=== PATIENT | female | born 1935 | race Caucasian/White ===

== ENCOUNTER → 2022-10-29 12:30 | Outpatient (REF) | payer OTHER, SELFPAY | LOC: WOUND 12:30 | PROVIDERS: ATTENDING PHYSICIAN Surgery; REFERRING PHYSICIAN Family Medicine | DX: L97.512 Non-pressure chronic ulcer of other part of right foot with fat layer exposed (principal); I73.9 Peripheral vascular disease, unspecified; L97.522 Non-pressure chronic ulcer of other part of left foot with fat layer exposed | CPT/HCPCS: 11042 ==

== ENCOUNTER → 2023-05-23 00:03 | Outpatient (REF) | payer OTHER, SELFPAY ==
[2023-05-23 00:24] LABS: % Basophils 0.2 % (0-2); % Immature Granulocytes 0.4 % (0-0.5); % Lymphocytes 21.2 % (20.5-51.1); % Monocytes 17.8 % (1.7-9.3); % Neutrophils 60.4 % (42.2-75.2); Absolute Lymphocytes 1.2 10^3/uL (1.2-3.4); Absolute Neutrophils 3.4 10^3/uL (1.4-6.5); Mean Corp Hgb Conc. 33.3 g/dL (33.0-37.0); Mean Corpuscular Hgb 30.3 pg (27.0-31.0); Mean Corpuscular Volume 90.9 fL (81.0-99.0); Nucleated Red Blood Cells % 0 %; Platelet Count 164 10^3/uL (130-400); Red Blood Cell Count 3.63 10^6/uL (4.20-5.40); Red Cell Dist. Width 15.9 % (11.5-14.5); White Blood Cell Count 5.7 10^3/uL (4.8-10.8)
== END ==
LOC: OLAB 00:03
PROVIDERS: ATTENDING PHYSICIAN Student in an Organized Health Care Education/Training Program
DX: R05.9 Cough, unspecified (principal)
CPT/HCPCS: 85025

== ENCOUNTER → 2023-08-12 10:07 | Outpatient (REF) | payer MEDICARE, OTHER, SELFPAY ==
[2023-08-12 11:58] LABS: Free T4 0.91 ng/dl (0.78-2.19)
[2023-08-15 17:29] LABS: Total T3 (Sendout) 88 ng/dL (80-200)
== END ==
LOC: OLABN 10:07
PROVIDERS: ATTENDING PHYSICIAN Student in an Organized Health Care Education/Training Program
DX: E03.9 Hypothyroidism, unspecified (principal)
CPT/HCPCS: 36415; 84439; 84443; 84480

== ENCOUNTER → 2023-08-16 12:04 | Outpatient (REF) | payer MEDICARE, OTHER, SELFPAY ==
[2023-08-16 13:08] LABS: Creatine Phosphokinase 54 U/L (30-135); HDL Cholesterol 37 mg/dl; LDL Cholesterol, Calculated 59 mg/dl; Total Cholesterol 118 mg/dl (50-199); Triglyceride 112 mg/dl (10-149); Very Low Density Lipoprotein 22 mg/dl (0-30)
[2023-08-16 13:19] LABS: Free T3 2.66 pg/ml (2.77-5.27); Free T4 1.06 ng/dl (0.78-2.19)
== END ==
LOC: OLABN 12:04
PROVIDERS: ATTENDING PHYSICIAN Student in an Organized Health Care Education/Training Program
DX: E03.9 Hypothyroidism, unspecified (principal); E78.89 Other lipoprotein metabolism disorders
CPT/HCPCS: 36415; 80061; 82550; 84439; 84443; 84481

== ENCOUNTER → 2023-09-27 11:26 | Outpatient (REF) | payer MEDICARE, OTHER, SELFPAY | LOC: HWRAD 11:26 | PROVIDERS: ATTENDING PHYSICIAN Student in an Organized Health Care Education/Training Program | DX: R94.6 Abnormal results of thyroid function studies (principal); E03.9 Hypothyroidism, unspecified | CPT/HCPCS: 76536 ==

== ENCOUNTER → 2023-10-05 11:58 | Outpatient (REF) | payer MEDICARE, OTHER, SELFPAY ==
[2023-10-05 13:18] LABS: Free T4 1.45 ng/dl (0.78-2.19)
[2023-10-05 13:31] LABS: TSH 7.38 uIU/ml (0.47-4.68)
== END ==
LOC: OLABN 11:58
PROVIDERS: ATTENDING PHYSICIAN Student in an Organized Health Care Education/Training Program
DX: E03.9 Hypothyroidism, unspecified (principal)
CPT/HCPCS: 36415; 84439; 84443

== ENCOUNTER → 2023-11-15 11:32 | Outpatient (REF) | payer MEDICARE, OTHER, SELFPAY ==
[2023-11-15 14:17] LABS: Free T4 1.72 ng/dl (0.78-2.19)
[2023-11-15 14:31] LABS: TSH 0.98 uIU/ml (0.47-4.68)
== END ==
LOC: OLABN 11:32
PROVIDERS: ATTENDING PHYSICIAN Student in an Organized Health Care Education/Training Program
DX: E03.9 Hypothyroidism, unspecified (principal)
CPT/HCPCS: 36415; 84439; 84443

== ENCOUNTER → 2024-05-07 11:18 | Outpatient (REF) | payer MEDICARE, OTHER, SELFPAY ==
[2024-05-07 11:57] LABS: Urine Albumin Trace (Neg - Trace); Urine Bilirubin Negative (Negative); Urine Character Clear (Clear); Urine Color Yellow; Urine Glucose Negative (Negative); Urine Ketone Negative (Negative); Urine Leukocyte 2+ (Negative); Urine Nitrite Negative (Negative); Urine Occult Blood Negative (Negative); Urine Urobilinogen Negative (Neg - 1+); Urine pH 6.5 (5.0-9.0)
[2024-05-07 12:15] LABS: Urine Red Blood Cell None Seen /HPF (0-2); Urine Squamous Cell 0-2 /LPF (Few)
[2024-05-07 12:16] LABS: Urine Bacteria Many (Negative); Urine White Cell 30-40 /HPF (0-5)
== END ==
LOC: OLABN 11:18
PROVIDERS: ATTENDING PHYSICIAN Student in an Organized Health Care Education/Training Program
DX: R35.0 Frequency of micturition (principal)
CPT/HCPCS: 81003; 81015; 87077; 87086; 87088; 87186

== ENCOUNTER 2024-07-19 19:56 | Emergency (ER) | payer MEDICARE, OTHER, SELFPAY ==
[2024-07-19 20:00] VITALS: BP 140/101; BMI 26.3
[2024-07-19 20:18] LABS: % Basophils 0.6 % (0-2); % Eosinophils 1.7 % (0-6); % Immature Granulocytes 0.2 % (0-0.5); % Lymphocytes 27.8 % (20.5-51.1); % Monocytes 8.8 % (1.7-9.3); % Neutrophils 60.9 % (42.2-75.2); Absolute Basophils 0.1 10^3/uL (0-0.2); Absolute Eosinophils 0.1 10^3/uL (0-0.7); Absolute Lymphocytes 2.3 10^3/uL (1.2-3.4); Absolute Monocytes 0.7 10^3/uL (0.1-0.6); Absolute Neutrophils 4.9 10^3/uL (1.4-6.5); Hematocrit 38.8 % (37.0-47.0); Hemoglobin 12.2 g/dL (12.0-16.0); Mean Corp Hgb Conc. 31.4 g/dL (33.0-37.0); Mean Corpuscular Hgb 29.3 pg (27.0-31.0); Mean Platelet Volume 9.9 fL (7.4-10.4); Nucleated Red Blood Cells % 0 %; Platelet Count 175 10^3/uL (130-400); Red Blood Cell Count 4.17 10^6/uL (4.20-5.40); Red Cell Dist. Width 14.9 % (11.5-14.5); White Blood Cell Count 8.1 10^3/uL (4.8-10.8)
--- NOTE | 2024-07-19 20:30 | ED.GENMED ---
History of Present Illness
General
Chief Complaint: Chest Pain
Source: [facility] and [facility] records
Exam Limitations: dementia
Time Seen by Provider: 07/19/24 20:13
Nursing documentation reviewed up to this point in time: agreed with
History of Present Illness
History of Present Illness:
89-year-old female history of pacemaker dementia lives at a [facility] presents with chest pain headache apparently her demand pacemaker was working, I evaluated the patient she was disoriented to place and time she knew her name told me she is
retired nurse from [employer], denies chest pain denies headache denies shortness of breath states she does not know why she is here
Past History
Past History
ED Past Medical History: Arrthythmia (paroxysmal atrial tachycardia), GERD, HTN, Hypercholesterolemia, Hypothyroidism, Psychiatric (Velasquez. depression), Other (restless leg syndrome; GI bleed in March 2015), Other (cataract extraction bilaterally)
and Other (chronic back pain; question of polymyalgia)
ED Past Surgical History: Cardiac (Pacemaker), Cholecystectomy, Gynecological (hysterectomy), Orthopedic (hip replacements B/L) and Other (sinus surgery; carotid artery stenting bilaterally)
Social History
Tobacco: Former smoker
Alcohol: None
Drug: None
Personal:
Living: with family
Employment: Retired
Family History
Family History: Other (Father and Brother had kidney disease)
Review of Systems
Review of Systems
Unable to obtain full review of systems at this time due to: dementia
All Other Systems: Not applicable
Phy Exam
Physical Exam
Physical Exam:
Physical Exam
General: Elderly demented female in no acute distress
Neck: No jaundice
Heart: s1/s2 regular rate and rhythm, no murmur. equal radial pulses.
Lungs: Bibasilar crackles
Abdomen: Nontender
Neuro: Oriented x 1 clear speech distant memory intact
Skin: no rash
Psychiatric: cooperative
Extremities: 1+ edema no calf pain
Scores
Heart Score for Chest Pain Patients
STEMI patient?: No
History: Slightly or Non-Suspicious
ECG: Nonspecific Repolarization
Age: >/= 65 years
Risk Factors: >/= 3 Risk Factors or History of CAD
Troponin: </= Normal Limit
Heart Score for Chest Pain Patients: 5
Heart Score Risk: 20.3% MACE over next 6 weeks
Course
Orders/Labs/Results
Orders:
Orders
07/19/24 19:59
Electrocardiogram (*1) Urgent
Reason for Study: Chest Pain
EKG- Treatment ONCE
07/19/24 20:06
Complete Blood Count/With Diff Urgent
Comprehensive Metabolic Panel Urgent
NT-proBNP Urgent
Comment: ADD ON
Troponin I Urgent
07/19/24 20:29
Add On- LAB Urgent
Tests Added?: pbnp
07/19/24 20:30
CR Chest - 2 Views Urgent
Comment:
Reason For Exam: cp
07/19/24 21:25
Furosemide [Lasix] 20 mg IV NOW STA
Abnormal Lab Results
07/19/24
20:06
RBC 4.17 L 10^6/uL
(4.20-5.40)
MCHC 31.4 L g/dL
(33.0-37.0)
RDW 14.9 H %
(11.5-14.5)
Absolute Monos (auto) 0.7 H 10^3/uL
(0.1-0.6)
BUN 34 H mg/dl
(7-17)
Creatinine 1.2 H mg/dL
(0.6-1.0)
Glucose 120 H mg/dl
(70-99)
07/19/24 20:06
07/19/24 20:06
Vital Signs
Initial and Last Documented VS:
Initial Vital Signs
Pulse Resp BP Pulse Ox
90 21 140/101 95
07/19/24 20:00 07/19/24 20:00 07/19/24 20:00 07/19/24 20:00
Last Documented Vital Signs
Pulse Resp BP Pulse Ox
90 21 140/101 95
07/19/24 20:00 07/19/24 20:00 07/19/24 20:00 07/19/24 20:00
MDM/Problems Addressed
Differential Diagnosis Includes:
ACS noncardiac chest pain heart failure pneumonia dementia conceivably PE
MDM/Problems Addressed:
Chest pain headache
Chronic conditions affecting care: Arrhythmia and Neurological disorder
Acute Exacerbation and/or Progression of Chronic Illness: Arrhythmia and Neurological disorder
*Radiology
Radiology exam reviewed: preliminary read by ED provider
*Pulse Oximetry
Patient hypoxic: no
*EKG
Interpreted by ED Provider?: Yes
Interpretation: abnormal
Comparison EKG: no comparison EKG present
Heart Rate: 78
Rate: normal
Ischemia: non-specific ST changes
*Double Cut Off Saw Operator Interpretation
Rate: normal
Interpretation: normal
Heart Rate: 78
Rhythm: ventricular paced
*Critical Care Note
Total Time (30-74mins, 75-104mins- exclusive of procedures): Not Applicable
Update Note
Update Note:
Update patient no acute distress apparently has advanced dementia check some screening labs, with an eye towards sending her back to her facility if no acute issues are found
9 PM labs noted chest x-ray noted proBNP noted troponin undetectable looks like she has a large heart about his AP view, will await formal read from radiology consideration for some diuretic, prior echo noted
Chest x-ray report noted will order Lasix, does not appear to have a serious reaction with sulfa
ED Attending Note
-
Portions of this chart may have been created with voice recognition software.� Occasional wrong word or��sound alike� substitutions may have occurred due to the inherent limitations of voice recognition software.
Discharge Plan
Departure
Patient Disposition: Home (Routine Discharge)
Date of Disposition: 07/19/24
Time of Disposition: 21:26
Patient with high blood pressure during this ER visit?: No
Condition: Good
Discharge Problem:
CHF (congestive heart failure)
Instructions: Heart failure in adults - Discharge instructions, Heart failure - ED discharge instructions, *PCP/Other Senior [address] Engineer Heart Failure Instructions
Prescriptions:
New
furosemide [Lasix] 20 mg tablet
20 mg PO DAILY Qty: 20 0RF
No Action
clopidogrel 75 MG tablet
75 mg PO DAILY Qty: 30 0RF
citalopram 20 MG tablet
40 mg PO DAILY
lorazepam 1 MG tablet
1 mg PO HSPRN PRN (Reason: sleep)
Patient Comments:
07/05/21 filled 06/24/21 #30 for 30 days
atenolol 50 MG tablet
50 mg PO DAILY
cholecalciferol (vitamin D3) 1,000 UNITS tablet
2,000 units PO DAILY
biotin 5,000 MCG tablet,disintegrating
5,000 mcg PO DAILY
aspirin 81 MG tablet,delayed release (DR/EC)
81 mg PO DAILY
Align (B.infantis) 4 MG capsule
4 mg PO DAILY
levothyroxine 112 MCG tablet
112 mcg PO DAILY AT 0700 30 Days Qty: 30 0RF
acetaminophen [Tylenol] 325 mg Capsule
325 mg PO DAILYPRN PRN (Reason: mild pain)
atorvastatin 40 MG tablet
40 mg PO QPM
cholestyramine-aspartame [Cholestyramine Light] 4 gram powder in packet
1 grams PO BID
Referrals:
Jose Wang DO [Family Provider] - Next open appointment
Activity Restrictions/Additional Instructions:
Start Lasix 20 mg a day
Repeat blood work in 4 to 5 days
Interventions
Interventions:
*Risk Screen - Suicide Last Done: 07/19/24 20:03
*General Assessment Last Done: 07/19/24 20:03
*Neglect/Abuse Screening Last Done: 07/19/24 20:03
*ED- Fall Risk Assessment Last Done: 07/19/24 20:03
*ED COVID-19 Vaccine History Last Done: 07/19/24 20:03
Discharge Date and Time
Print Language: GREENLANDIC
[2024-07-19 20:34] LABS: ALT (SGPT) 19 U/L (0-35); AST (SGOT) 29 U/L (14-36); Albumin 4.3 g/dl (3.5-5.0); Alkaline Phosphatase 73 U/L (38-126); Blood Urea Nitrogen 34 mg/dl (7-17); Carbon Dioxide 24 mmol/L (22-30); Chloride 105 mmol/L (98-107); Estimated Creatinine Clearance 31 ml/min; Glucose 120 mg/dl (70-99); Potassium 4.9 mmol/L (3.5-5.1); Sodium 139 mmol/L (135-145); Total Bilirubin 0.6 mg/dl (0.2-1.3); Total Protein 7.7 g/dl (6.3-8.2); eGFR 43.27
[2024-07-19 20:43] LABS: Troponin I < 0.012 ng/ml
[2024-07-19 20:51] LABS: NT-proBNP 1970 pg/ml
[2024-07-19] MEDS: LASIX 20 MG IV (21:41)
== END 2024-07-19 22:10 | disposition home or self-care (01) ==
LOC: EMR 19:56
PROVIDERS: EMERGENCY PHYSICIAN Emergency Medicine; FAMILY PHYSICIAN Student in an Organized Health Care Education/Training Program
DX: I50.9 Heart failure, unspecified (principal); I11.0 Hypertensive heart disease with heart failure; F03.93 Unspecified dementia, unspecified severity, with mood disturbance; F32.A Depression, unspecified; I47.19 Other supraventricular tachycardia; K21.9 Gastro-esophageal reflux disease without esophagitis; G25.81 Restless legs syndrome; E78.00 Pure hypercholesterolemia, unspecified; E03.9 Hypothyroidism, unspecified; I25.10 Atherosclerotic heart disease of native coronary artery without angina pectoris; Z87.891 Personal history of nicotine dependence; Z90.49 Acquired absence of other specified parts of digestive tract; Z90.710 Acquired absence of both cervix and uterus; Z95.0 Presence of cardiac pacemaker
CPT/HCPCS: 99283; 96374; 71046; 80053; 83880; 84484; 85025; 93005; 96372; 99284

== ENCOUNTER → 2024-07-24 09:44 | Outpatient (REF) | payer MEDICARE, OTHER, SELFPAY ==
[2024-07-24 11:15] LABS: % Basophils 0.5 % (0-2); % Eosinophils 1.9 % (0-6); % Immature Granulocytes 0.3 % (0-0.5); % Lymphocytes 27.7 % (20.5-51.1); % Monocytes 9.3 % (1.7-9.3); % Neutrophils 60.3 % (42.2-75.2); Absolute Eosinophils 0.1 10^3/uL (0-0.7); Absolute Lymphocytes 2.1 10^3/uL (1.2-3.4); Absolute Monocytes 0.7 10^3/uL (0.1-0.6); Absolute Neutrophils 4.6 10^3/uL (1.4-6.5); Hematocrit 36.9 % (37.0-47.0); Hemoglobin 11.9 g/dL (12.0-16.0); Mean Corp Hgb Conc. 32.2 g/dL (33.0-37.0); Mean Corpuscular Hgb 30.1 pg (27.0-31.0); Mean Corpuscular Volume 93.4 fL (81.0-99.0); Mean Platelet Volume 10.5 fL (7.4-10.4); Nucleated Red Blood Cells % 0 %; Platelet Count 167 10^3/uL (130-400); Red Blood Cell Count 3.95 10^6/uL (4.20-5.40); Red Cell Dist. Width 14.8 % (11.5-14.5); White Blood Cell Count 7.6 10^3/uL (4.8-10.8)
[2024-07-24 11:58] LABS: NT-proBNP 1200 pg/ml
[2024-07-24 12:02] LABS: ALT (SGPT) 18 U/L (0-35); AST (SGOT) 25 U/L (14-36); Albumin 4.1 g/dl (3.5-5.0); Alkaline Phosphatase 86 U/L (38-126); Blood Urea Nitrogen 36 mg/dl (7-17); Calcium 9.5 mg/dl (8.4-10.2); Carbon Dioxide 25 mmol/L (22-30); Chloride 103 mmol/L (98-107); Glucose 88 mg/dl (70-99); Potassium 4.6 mmol/L (3.5-5.1); Sodium 139 mmol/L (135-145); Total Bilirubin 0.4 mg/dl (0.2-1.3); Total Protein 7.2 g/dl (6.3-8.2); eGFR 39.31
[2024-07-24 12:20] LABS: TSH 1.86 uIU/ml (0.47-4.68)
== END ==
LOC: OLABN 09:44
PROVIDERS: ATTENDING PHYSICIAN Student in an Organized Health Care Education/Training Program
DX: I10 Essential (primary) hypertension (principal); I50.9 Heart failure, unspecified; E03.9 Hypothyroidism, unspecified
CPT/HCPCS: 36415; 80053; 83880; 84443; 85025

== ENCOUNTER → 2024-10-04 12:00 | Outpatient (REF) | payer MEDICARE, OTHER, SELFPAY | LOC: OLABN 12:00 | PROVIDERS: ATTENDING PHYSICIAN Student in an Organized Health Care Education/Training Program | DX: R19.7 Diarrhea, unspecified (principal) | CPT/HCPCS: 87045; 87046; 87324; 87427; 87449 ==

== ENCOUNTER → 2024-10-09 10:22 | Outpatient (REF) | payer MEDICARE, OTHER, SELFPAY ==
[2024-10-09 12:01] LABS: Blood Urea Nitrogen 35 mg/dl (7-17); Calcium 9.1 mg/dl (8.4-10.2); Carbon Dioxide 23 mmol/L (22-30); Chloride 110 mmol/L (98-107); Glucose 90 mg/dl (70-99); Magnesium 1.9 mg/dl (1.6-2.3); Potassium 3.8 mmol/L (3.5-5.1); Sodium 143 mmol/L (135-145); eGFR 35.96
== END ==
LOC: OLABN 10:22
PROVIDERS: ATTENDING PHYSICIAN Student in an Organized Health Care Education/Training Program
DX: I50.22 Chronic systolic (congestive) heart failure (principal)
CPT/HCPCS: 36415; 80048; 83735

== ENCOUNTER → 2024-10-16 11:28 | Outpatient (REF) | payer MEDICARE, OTHER, SELFPAY ==
[2024-10-16 12:38] LABS: Blood Urea Nitrogen 26 mg/dl (7-17); Calcium 9.3 mg/dl (8.4-10.2); Carbon Dioxide 27 mmol/L (22-30); Chloride 105 mmol/L (98-107); Glucose 88 mg/dl (70-99); Potassium 4.0 mmol/L (3.5-5.1); Sodium 141 mmol/L (135-145); eGFR 48.03
== END ==
LOC: OLABN 11:28
PROVIDERS: ATTENDING PHYSICIAN Student in an Organized Health Care Education/Training Program
DX: I50.9 Heart failure, unspecified (principal)
CPT/HCPCS: 36415; 80048; 83880

== ENCOUNTER → 2024-11-11 07:59 | Outpatient (REF) | payer MEDICARE, OTHER, SELFPAY ==
[2024-11-11 08:30] LABS: Hematocrit 37.2 % (37.0-47.0); Hemoglobin 11.7 g/dL (12.0-16.0); Mean Corp Hgb Conc. 31.5 g/dL (33.0-37.0); Mean Corpuscular Volume 93.5 fL (81.0-99.0); Nucleated Red Blood Cells % 0 %; Platelet Count 177 10^3/uL (130-400); Red Cell Dist. Width 13.8 % (11.5-14.5)
[2024-11-11 08:47] LABS: ALT (SGPT) < 10 U/L (0-35); AST (SGOT) 18 U/L (14-36); Albumin 3.7 g/dl (3.5-5.0); Alkaline Phosphatase 65 U/L (38-126); Blood Urea Nitrogen 24 mg/dl (7-17); Calcium 9.1 mg/dl (8.4-10.2); Carbon Dioxide 32 mmol/L (22-30); Chloride 105 mmol/L (98-107); Glucose 91 mg/dl (70-99); Magnesium 1.8 mg/dl (1.6-2.3); Potassium 4.2 mmol/L (3.5-5.1); Sodium 141 mmol/L (135-145); Total Protein 7.0 g/dl (6.3-8.2); eGFR 53.85
== END ==
LOC: OLABN 07:59
PROVIDERS: ATTENDING PHYSICIAN Student in an Organized Health Care Education/Training Program
DX: I50.22 Chronic systolic (congestive) heart failure (principal)
CPT/HCPCS: 36415; 80053; 83735; 83880; 85025

== ENCOUNTER → 2024-11-13 10:24 | Outpatient (REF) | payer MEDICARE, OTHER, SELFPAY ==
[2024-11-13 12:21] LABS: Hematocrit 39.2 % (37.0-47.0); Hemoglobin 12.4 g/dL (12.0-16.0); Mean Corp Hgb Conc. 31.6 g/dL (33.0-37.0); Mean Corpuscular Volume 93.3 fL (81.0-99.0); Platelet Count 213 10^3/uL (130-400); Red Cell Dist. Width 14.0 % (11.5-14.5)
[2024-11-13 12:32] LABS: Blood Urea Nitrogen 35 mg/dl (7-17); Calcium 9.9 mg/dl (8.4-10.2); Carbon Dioxide 32 mmol/L (22-30); Chloride 102 mmol/L (98-107); Glucose 116 mg/dl (70-99); Magnesium 1.9 mg/dl (1.6-2.3); Potassium 4.7 mmol/L (3.5-5.1); Sodium 140 mmol/L (135-145); eGFR 43.27
== END ==
LOC: OLABN 10:24
PROVIDERS: ATTENDING PHYSICIAN Student in an Organized Health Care Education/Training Program
DX: I50.32 Chronic diastolic (congestive) heart failure (principal)
CPT/HCPCS: 36415; 80048; 83735; 85027

== ENCOUNTER → 2024-12-04 11:14 | Outpatient (REF) | payer MEDICARE, OTHER, SELFPAY ==
[2024-12-04 13:35] LABS: HDL Cholesterol 32 mg/dl; LDL Cholesterol, Calculated 92 mg/dl; Very Low Density Lipoprotein 26 mg/dl (0-30)
== END ==
LOC: OLABN 11:14
PROVIDERS: ATTENDING PHYSICIAN Student in an Organized Health Care Education/Training Program
DX: E78.5 Hyperlipidemia, unspecified (principal)
CPT/HCPCS: 36415; 80061